=== PATIENT | female | born 1990 | race Two or more races ===

== ENCOUNTER 2019-03-20 01:43 | Emergency (ER) | payer MEDICAID ==
[~2019-03-20] VITALS: Ht 165.1 cm; Wt 63.5 kg
--- NOTE | 2019-03-20 02:25 | NUR ---
RUSTAM AL AT BEDSIDE FOR MSE.
--- NOTE | 2019-03-20 02:33 | NUR ---
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
--- NOTE | 2019-03-20 03:33 | NUR ---
Patient does not wish to proceed with medical care recommended by Dr. TORRES. Patient given information related to possible complications, up to and including , which could occur as a result of leaving the hospital at this time. Patient verbalizes understanding of risks involved due to leaving against medical advice. Patient has signed AMA form.
[2019-03-20 03:36] VITALS: BP 121/77
--- NOTE | 2019-03-20 04:47 | NUR ---
Called to leave the beta hCG x 2. phone went directly to voicemail-automated voice. mailbox full so can not leave message.
== END 2019-03-20 03:36 | disposition left against medical advice (07) ==
LOC: ER 01:48
DX: O03.9 Complete or unspecified spontaneous abortion without complication (principal); M79.5 Residual foreign body in soft tissue; Z3A.00 Weeks of gestation of pregnancy not specified
CPT/HCPCS: 36415; 76856; 86850; 86900; 86901; A4663

== ENCOUNTER 2019-03-25 19:08 | Emergency (ER) | payer MEDICAID ==
[~2019-03-25] VITALS: Ht 165.1 cm; Wt 63.5 kg
[2019-03-25] MEDS ORDERED: ONDANSETRON ODT 4 MG TAB.RAPDIS SL ONE (19:45)
[2019-03-25] MEDS ORDERED: OXYCODONE/APAP 5-325 MG TABLET PO ONE (19:45)
[2019-03-25] MEDS ORDERED: ONDANSETRON ODT 4 MG TAB.RAPDIS ONE (19:47)
[2019-03-25] MEDS ORDERED: OXYCODONE/APAP 5-325 MG TABLET ONE (19:48)
[2019-03-25 19:51] LABS: BASOPHILS % (AUTO) 0.6 % (0.0-2.0); EOSINOPHILS # (AUTO) 0.2 K/uL (0.0-0.7); EOSINOPHILS % (AUTO) 2.8 % (0.0-7.0); HEMATOCRIT 22.2 % (31.2-41.9); LYMPHOCYTES # (AUTO) 2.1 K/uL (20.0-40.0); LYMPHOCYTES % (AUTO) 27.9 % (20.5-51.5); MEAN CORPUSCULAR HEMOGLOBIN 27.2 uug (24.7-32.8); MEAN CORPUSCULAR HGB CONC 33 g/dL (32.3-35.6); MEAN CORPUSCULAR VOLUME 83.4 fL (75.5-95.3); MONOCYTES # (AUTO) 0.6 K/uL (2.0-10.0); MONOCYTES % (AUTO) 8.6 % (0.0-11.0); NEUTROPHILS # (AUTO) 4.5 K/uL (1.8-8.9); NEUTROPHILS % (AUTO) 60.1 % (38.5-71.5); PLATELET COUNT (AUTO) 675 K/uL (179-408); RED BLOOD CELL COUNT(AUTO) 2.66 MIL/uL (3.63-4.92); WHITE BLOOD COUNT (AUTO) 7.5 K/uL (3.8-11.8)
[2019-03-25 19:54] LABS: CREATININE 0.7 mg/dL (0.6-1.3); POTASSIUM 3.7 mmol/L (3.5-5.1)
[2019-03-25 19:57] LABS: HEMOGLOBIN 7.3 g/dL (10.9-14.3)
[2019-03-25 20:01] LABS: BILIRUBIN,DIRECT 0.1 mg/dL (0.0-0.2); BILIRUBIN,TOTAL 0.3 mg/dL (0.2-1.0); TOTAL PROTEIN, SERUM 7.3 g/dL (6.4-8.2)
[2019-03-25] MEDS ORDERED: METRONIDAZOLE 500 MG TABLET PO ONE (20:45)
[2019-03-25] MEDS ORDERED: CEFTRIAXONE 1 G VIAL IM ONE (20:45)
[2019-03-25] MEDS ORDERED: LIDOCAINE HCL 1% 20 ML VIAL ONE (20:48)
[2019-03-25] MEDS ORDERED: CEFTRIAXONE 1 G VIAL ONE (20:48)
[2019-03-25] MEDS ORDERED: METRONIDAZOLE 500 MG TABLET ONE (20:48)
[2019-03-25 21:10] VITALS: BP 101/71
== END 2019-03-25 21:11 | disposition home or self-care (01) ==
LOC: ER 19:09
DX: N71.9 Inflammatory disease of uterus, unspecified (principal)
CPT/HCPCS: 36415; 76856; 80048; 80076; 84702; 85025; 85730; 87210; 96372; 99284; J0696; J3490; A4663; Q0162